=== PATIENT | male | born 1950 | race Caucasian/White ===

== ENCOUNTER → 2020-07-27 12:41 | Outpatient (BNVA) | payer OTHER, SELFPAY | PROVIDERS: Visit Provider Physician Assistant | DX: S20.219A Contusion of unspecified front wall of thorax, initial encounter (principal); S50.01XA Contusion of right elbow, initial encounter; W00.9XXA Unspecified fall due to ice and snow, initial encounter | CPT/HCPCS: 71101; 99203 ==